=== PATIENT | female | born 1950 | race Caucasian/White ===

== ENCOUNTER → 2020-08-13 | Outpatient (CLI) | payer OTHER ==
[~2020-08-13] MED LIST: AMITRIPTYLINE150 MG PO; CARVEDILOL25 MG PO; CELEXA40 MG PO; DAILY VALUE1 EAC1 PO; DICLOFENAC SODI75 MG PO; FISH OIL 1,2001 EAC4 PO; GLUMETZA500 PO; MELATONIN10 M3 PO; NEURONTIN300 MG PO; SPIRONOLACTONE25 MG PO; STOOL SOFTENER100 M1 PO; SUPER B-50 COM1 EACH PO; VITAMIN D3250 MC2 PO
== END ==
LOC: LAB 10:45
PROVIDERS: ATTEND Orthopaedic Surgery
DX: Z01.812 Encounter for preprocedural laboratory examination (principal); Z20.822 Contact with and (suspected) exposure to COVID-19

== ENCOUNTER 2020-08-19 06:06 | Day surgery (SDC) | payer OTHER ==
[2020-08-13 11:05] LABS: HEMATOCRIT 36.2 % (37.0-47.0); HEMOGLOBIN 12.2 gm/dL (12.0-15.0); MCH 31.7 pg (26.0-34.0); MCHC 33.6 g/dL (28.0-37.0); MCV 94.4 fL (80.0-100.0); RBC 3.84 mil/uL (4.20-5.00); RDW 13.8 % (10.5-14.5); WBC 7.7 thou/uL (4.0-11.0)
[2020-08-13 11:06] LABS: URINE BILIRUBIN NEGATIVE (Negative); URINE BLOOD TRACE (Negative); URINE CLARITY CLEAR; URINE COLOR YELLOW; URINE GLUCOSE-RANDOM* NEGATIVE (Negative); URINE KETONES NEGATIVE (Negative); URINE NITRITE-REFLEX NEGATIVE (Negative); URINE PROTEIN (DIPSTICK) NEGATIVE (Negative); URINE UROBILINOGEN 0.2 E.U./dl (0.2-1.0)
[2020-08-13 11:13] LABS: ALBUMIN 3.8 g/dL (3.4-5.0); CALCIUM 9.2 mg/dL (8.5-10.1); CREATININE 0.8 mg/dL (0.6-1.0); POTASSIUM 3.9 mmol/L (3.5-5.1)
[2020-08-13 11:14] LABS: URINE LEUKOCYTES-REFLEX 1+ (Negative)
[2020-08-13 11:18] LABS: PROTIME 10.2 Seconds (9.3-11.4)
--- NOTE | 2020-08-13 11:21 | EKG ---
[address] [address] ELECTROCARDIOGRAM REPORT Name: KENDELL BANDA Room #: PRE IN [facility]#: [id number] Admission: Attend Phys: Oscar De La Cruz MD Discharge: Date of : 50 Report #: [id number] [facility] Test Date: 2020-08-13 Test Time: 11:03:25 Pat Name: KENDELL BANDA Department: Room: Gender: F Receiving Clerk: BI : 1950 Requested By: Oscar De La Cruz Order Number: [id number] MD: Christiano Fu Measurements Intervals [place] Rate: 102 P: 60 LA: 145 QRS: 7 QRSD: 141 T: 146 QT: 377 QTc: 492 Interpretive Statements Sinus tachycardia Probable left atrial enlargement Left bundle branch block No previous ECG available for comparison Electronically Signed On 08-13-2020 11:20:54 [employer] by Christiano Fu [email or web address] <ELECTRONICALLY SIGNED> By: Chrsitiano Fu MD 08/13/20 1120 1103 1103 Christiano Fu MD /ZAYRA
[2020-08-13 11:29] LABS: CASTS None Seen /LPF (None Seen); CRYSTALS None Seen /LPF (None Seen); SQUAMOUS None Seen /LPF (0-3); URINE RBC None Seen /HPF (0-2); URINE WBC-REFLEX 6-15 Few /HPF (0-5)
[2020-08-14 02:06] LABS: GLYCOHEMOGLOBIN (HGB A1C) 5.5 % (4.8-5.6)
[~2020-08-19] VITALS: Ht 172.7 cm; Wt 75.3 kg
--- NOTE | ~2020-08-19 | O ---
[facility] [place] [address] OPERATIVE REPORT Name: KENDELL BANDA Room #: 150-1 [facility] M.R.#: [id number] Admission: 08/19/20 Attend Phys: Oscar De La Cruz MD Discharge: Date of : 50 Report #: [id number] THIS REPORT FOR: cc: Nelda Corcoran,Nelda Charles,Oscar Matthews MD ~ DATE OF SERVICE: 08/19/2020 PREOPERATIVE DIAGNOSIS: Left hip osteoarthritis. POSTOPERATIVE DIAGNOSIS: Left hip osteoarthritis. PROCEDURE: Left total hip arthroplasty. SURGEON: Dr. Oscar De La Cruz HEADLINE WRITER: Renée George PA-C. INDICATIONS FOR HEADLINE WRITER: Throughout the case, extensive retraction and manipulation of the hip including dislocation and reduction was required. This was afforded to me by my photographer assistant. ANESTHESIA: General. IMPLANTS: [employer] size 13 high offset Synergy press-fit stem, a size 54 R3 acetabular cup with 1 acetabular screw, a size 36+4 cobalt chrome head. In addition, we used an Accord cerclage cable for prophylactic femur fixation. ESTIMATED BLOOD LOSS: 100 mL. COMPLICATIONS: None. SPECIMENS: None. CONDITION UPON LEAVING THE OPERATING ROOM: Stable. INDICATIONS FOR PROCEDURE: The patient is a 69-year-old female with severe left hip osteoarthritis, who failed conservative measures for this and after discussion with her, she elected for left total hip arthroplasty. DESCRIPTION OF PROCEDURE: Risks, benefits, alternatives, complications were discussed in detail with the patient including but not limited to risk of anesthesia, risk of damage to nerves, arteries, blood vessels, risk for infection, bleeding, risk for leg length discrepancy, instability and need for reoperation. Informed consent was obtained from the patient. The left hip was [facility] [address] [place] [address] OPERATIVE REPORT Name: KENDELL BANDA Room #: 150-1 [facility] M.Rahul.#: [id number] Admission: 08/19/20 Attend Phys: Oscar De La Cruz MD Discharge: Date of : 50 Report #: [id number] appropriately marked in the preoperative holding area. IV Ancef was given for preoperative antibiotics. She was brought to the operating room and placed in supine position on operating room table. General anesthesia was induced without complications. She was placed in the right lateral decubitus position with the left hip uppermost. Left hip and lower extremity were prepped and draped in normal sterile fashion. Timeout was performed properly identifying the patient and procedure as well as the instrumentation and implants. All in the operating room were in agreement. Standard posterior approach to the distal phalange blade through the skin. Dissection was taken down sharply to the fascia. Deep flaps were developed medially and laterally. Fresh 10 blade was used to make a fascial incision. This was taken proximally and distally with curved Almanza scissor. Charnley retractor was placed. Trochanteric bursa was taken down with Bovie cautery. Piriformis tendon was identified, tagged and taken down with Bovie. Short external rotators were also taken down with Bovie cautery. Capsulotomy was made and capsule ends were tagged for later repair. The hip was dislocated. There was extensive osteoarthritic change of the femoral head. Femoral neck cut was made 1 cm proximal to lesser trochanter based on preoperative templating. The femoral head was removed. Deep acetabular retractors were placed. Labrum was removed sharply. Pulvinar was removed with Bovie cautery. Acetabulum was then sequentially reamed up to a size 54, at which point, there was excellent bleeding cancellous bone. A size 53 trial cup was placed, found to have a good fit. A final size 54 R3 acetabular cup was placed and seated. One acetabular screw was placed for backup fixation and polyethylene liner for a 36 head was placed. After this, a single Accord cerclage cable was placed around the proximal femur for prophylactic fixation. The femur was reamed and broached up to a size 13, at which point, the size 13 broach was stable, was trialed with a high offset neck and a 36+0 head. Hip was reduced, taken through range of motion, found to be stable, found to be somewhat short on the left compared to the right. It was felt we could make up for this with the final implant. Hip was dislocated. Broach was removed and final size 13 high offset Synergy press-fit stem was placed. This was trialed with a 36+4 head. Hip was reduced, taken through range of motion, found to be stable, found to have equal leg lengths. Hip was dislocated one last time and a final size 36+4 cobalt chrome head was placed. Hip was reduced, taken through range of motion, found to be stable, found to have equal leg lengths. Wound was thoroughly irrigated with normal saline. A periarticular injection consisting of morphine, ropivacaine, epinephrine, Toradol was placed around the hip joint capsule. A gram of vancomycin was placed deep in the capsule. The capsule and piriformis were repaired with 0 FiberWire. Fascia was closed with 0 Vicryl, skin was closed with 2-0 Vicryl, 3-0 Monocryl. Dermabond and OMERO dressing was [address] [address] OPERATIVE REPORT Name: KENDELL BANDA Room #: 150-[address] [facility]..#: [id number] Admission: 08/19/20 Attend Phys: Oscar De La Cruz MD Discharge: Date of : 50 Report #: [id number] applied. The patient tolerated this procedure well and went to recovery room under care of anesthesia postoperatively. By: [id number] Oscar De La Cruz MD /nt
[2020-08-19 06:51] VITALS: BP 103/70
[2020-08-19 11:17] VITALS: BP 108/64
--- NOTE | 2020-08-19 14:32 | NUR ---
ASSESSMENT: CM REVIEWED CHART. PT IS S/P L TOTAL HIP REPLACEMENT. PT REPORTS LIVING WITH HER DAUGHTER. PT HAS ABOUT TWO STEPS TO ENTER THE HOME AND ABOUT 14 STEPS WITH HANDRAILS TO HER BEDROOM. PT REPORTS HAVING A CANE FOR AMBULATION. PHYSICAL THERAPY IS WORKING WITH PT AND RECOMMENDING A WALKER. PT REPORTS HAVING NO PREFERENCE OF [employer]. CM NOTIFIED [facility] WHO IS DELIVERING A WALKER TO PATIENTS ROOM. PT REPORTS HAVING OUTPATIENT THERAPY ARRANGED IN [place]. CM DISCUSSED ROLE. PT DOES NOT ANTICIPATE ANY NEEDS FROM CM. PT REPORTS SHE IS HOPFEUL SHE WILL BE ABLE TO DISCHARGE THIS EVENING.
[2020-08-19 15:44] VITALS: BP 108/64
[2020-08-19 15:54] VITALS: BP 108/64
== END 2020-08-19 17:46 | disposition home or self-care (01) ==
LOC: OR 06:06 → TBA 06:07 → PRE 10:21 → 4S 11:03 → PRE 11:29 → EDSTATUS 12:28 → OR 12:33 → PRE 12:56 → OR 17:46
PROVIDERS: ATTEND Orthopaedic Surgery
DX: M16.12 Unilateral primary osteoarthritis, left hip (principal); I10 Essential (primary) hypertension; F32.9 Major depressive disorder, single episode, unspecified; K21.9 Gastro-esophageal reflux disease without esophagitis; Z98.890 Other specified postprocedural states; Z79.899 Other long term (current) drug therapy; Z85.820 Personal history of malignant melanoma of skin; Z90.710 Acquired absence of both cervix and uterus; Z90.49 Acquired absence of other specified parts of digestive tract; Z98.51 Tubal ligation status
CPT/HCPCS: 10102; 50010; 50101; 50382; 50414; 53000; 53078; 53367; 54118; 56524; 56527; 56528; 56530; 57095; 57103; 57496; 62110; 62900; 70005